=== PATIENT | male | born 1985 | race Asian ===

== ENCOUNTER 2023-12-17 01:29 | Emergency (ER) | payer OTHER ==
[~2023-12-17] VITALS: Ht 167.6 cm; Wt 65.0 kg
[2023-12-17 01:41] VITALS: PULSE 111
[2023-12-17 03:01] VITALS: BP 137/96; RESP 18; TEMP 99; O2SAT 98
== END 2023-12-17 03:06 | disposition home or self-care (01) ==
LOC: ER 01:30
DX: S16.1XXA Strain of muscle, fascia and tendon at neck level, initial encounter (principal); S09.90XA Unspecified injury of head, initial encounter; Z91.011 Allergy to milk products; V89.2XXA Person injured in unspecified motor-vehicle accident, traffic, initial encounter; Y93.89 Activity, other specified; Y92.89 Other specified places as the place of occurrence of the external cause; Y99.8 Other external cause status
CPT/HCPCS: 70450; 72125; 99284; L0172; A4615